=== PATIENT | female | born 1990 | race Caucasian/White ===

== ENCOUNTER 2017-07-20 21:08 | Emergency (ER) | payer OTHER ==
[2017-07-20] MEDS ORDERED: Meclizine HCl 25 MG TAB ONE (21:40)
--- NOTE | 2017-07-20 23:09 | CT ---
CT HEAD WITHOUT IV CONTRAST: 07/20/17 HISTORY: Patient fell on Satur, 07/15/17, and hit head. Dizziness all weak. COMPARISON: 10/04/12. There is no evidence of a hemorrhage, acute infarction, mass effect or midline shift. Ventricular sys tem is normal in size, shape and position. No calvarial fracture is seen. There has been no interval change from the prior exam. IMPRESSION: No acute intracranial abnormalities demonstrated. POS: [facility]
== END 2017-07-20 22:22 | disposition home or self-care (01) ==
LOC: SCSER 21:08
DX: S06.0X9A Concussion with loss of consciousness of unspecified duration, initial encounter (principal); E03.9 Hypothyroidism, unspecified; I10 Essential (primary) hypertension; Z79.899 Other long term (current) drug therapy; W19.XXXA Unspecified fall, initial encounter; Y92.69 Other specified industrial and construction area as the place of occurrence of the external cause
CPT/HCPCS: 70450

== ENCOUNTER 2019-06-13 15:04 | Day surgery (SDC) | payer BC ==
[2019-06-13 15:48] VITALS: BMI 34.3
[2019-06-13] MEDS ORDERED: hydrALAZINE 20 MG/ML VIAL SLOW IVP PRN (16:08)
--- NOTE | 2019-06-13 16:33 | PRG ---
DATE OF SERVICE: 06/13/2019 TIME OF SERVICE: 16:05. PRESENTING COMPLAINT: Vaginal bleeding at 24 weeks' gestation. HISTORY OF PRESENT ILLNESS: Ms. Miranda is a 29-year-old, 1, para 0, EDC 09/28, 24 weeks and 4 days. Antepartum record not available on the unit. She presents complaining of vaginal bleeding without antecedent activity this afternoon. no contractions. She reports an active fetus. She has had no further bleeding. 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 Denies complications of . PAST MEDICAL HISTORY: Significant for hypertension, obesity, and hypothyroidism. SURGICAL HISTORY: Positive for gastric sleeve in 2015. MEDICATIONS: Include labetalol 100 p.o. b.i.d., Synthroid 25 mcg p.o. daily, vitamins, and [id number] antacid. ALLERGIES: PENICILLIN, LATEX, AND BENADRYL. SOCIAL HISTORY: Denies tobacco, alcohol, or IV drug use. FAMILY HISTORY: Noncontributory. REVIEW OF SYSTEMS: Noncontributory. PHYSICAL EXAMINATION: VITAL SIGNS: White female, blood pressure 103/57, pulse 83, respirations 18, and temperature 98.0. HEENT: Within normal limits. LUNGS: Clear to auscultation bilaterally. HEART: Regular rhythm. ABDOMEN: Soft and nontender. FHTs 160s. No contractions noted. Positive accelerations, no decelerations noted. Sterile speculum exam was carried out. The patient was noted to have a cervix that was visually closed. The cervix had marked ectropion and was friable. Endocervical canal was well visualized, and no active bleeding or bloody mucus was noted in the canal. The patient had a small amount of bright red blood in the vagina. It was consistent with bleeding from the ectropion on her friable cervix. Digital exam revealed a cervix that was closed, long, and high. IMPRESSION: Twenty-four weeks' gestation with friable cervix secondary to ectropion. No evidence of infection or supracervical bleeding. PLAN: Reassurance. ER precautions. Discharge home. Keep scheduled followup with Dr. Infante. Job ID: [id number]
== END 2019-06-13 16:20 | disposition home or self-care (01) ==
LOC: L&D/OP 15:04
PROVIDERS: ATTEND Obstetrics & Gynecology
DX: O46.92 Antepartum hemorrhage, unspecified, second trimester (principal); O34.42 Maternal care for other abnormalities of cervix, second trimester; N86 Erosion and ectropion of cervix uteri; O10.912 Unspecified pre-existing hypertension complicating pregnancy, second trimester; O99.282 Endocrine, nutritional and metabolic diseases complicating pregnancy, second trimester; E03.9 Hypothyroidism, unspecified; O99.212 Obesity complicating pregnancy, second trimester; E66.9 Obesity, unspecified; Z3A.24 24 weeks gestation of pregnancy; Z79.899 Other long term (current) drug therapy; Z88.0 Allergy status to penicillin; Z88.8 Allergy status to other drugs, medicaments and biological substances; Z91.041 Radiographic dye allergy status

== ENCOUNTER 2019-08-30 11:35 | Inpatient (IN) | payer BC ==
[~2019-08-30 11:35] MED LIST: Lidocaine 2% MPF 10 ML AMP (For Epidural Use) ONE
[2019-08-30] MEDS ORDERED: Lidocaine 1% (PF) 30 ML VIAL SC PRN (12:05)
[2019-08-30] MEDS ORDERED: Ondansetron PF 4 MG/2 ML Vial IVP PRN ×2 (12:05→18:03)
[2019-08-30] MEDS ORDERED: Butorphanol Tartrate 1 MG/ML VIAL SLOW IVP PRN (12:05)
[2019-08-30] MEDS ORDERED: Ibuprofen 800 MG TAB PO PRN (12:05)
[2019-08-30] MEDS ORDERED: HYDROcodone/Acetaminophen 5/325 mg Tablet PO PRN ×3 (12:05→18:03)
[2019-08-30] MEDS ORDERED: hydrALAZINE 20 MG/ML VIAL SLOW IVP PRN ×2 (12:05→18:03)
[2019-08-30] MEDS ORDERED: CEFAZOLIN 2 GM in Premix Bag 1 BAG IVPB SCH (12:15)
[2019-08-30] MEDS ORDERED: Lactated Ringer's 1,000 ML IV SCH ×2 (12:15)
[2019-08-30 12:19] VITALS: BMI 34.8
[2019-08-30] MEDS ORDERED: Fentanyl 4 mcg/Bup 0.1% Cadd 100 ML ONE (12:24)
[2019-08-30 12:36] LABS: Hemoglobin 9.1 g/dL (12.0-16.0); Mean Corpuscular Volume 72.9 fL (78.0-98.0); Mean Platelet Volume 9.8 fL (7.4-10.4); Platelet Count 341 thou/uL (130-400); RBC Distribution Width 14.4 % (11.5-14.5); Red Blood Cell (RBC) Count 3.77 mill/uL (4.20-5.40); White Blood Cell (WBC) Count 24.2 thou/uL (4.8-10.8)
[2019-08-30 13:01] LABS: HBSAg Index 0.32 S/CO (0-0.99); Hep B Surf Ag Non-Reactive S/CO (NonReactive); Syphilis Antibody Nonreactive (Nonreactive); Syphilis Antibody Index 0.06 S/CO (<1.00 Non-Reactive)
[2019-08-30] MEDS ORDERED: Lidocaine 1.5%/Epinephrine 1:200,000 5 ML AMPUL IJ ONE (13:15)
[2019-08-30] MEDS: NS / Oxytocin 40 units/1000ml 1,000 ML IV PRN ×2 (16:18→17:19)
[2019-08-30] MEDS ORDERED: Adacel (T-DAP) 0.5 ML SYRINGE IM ONE (18:03)
[2019-08-30] MEDS ORDERED: Misoprostol 200 MCG TAB VAG PRN (18:03)
[2019-08-30] MEDS ORDERED: Bisacodyl 10 MG SUPP PR PRN (18:03)
[2019-08-30] MEDS ORDERED: Promethazine HCl 25 MG/ML VIAL IM PRN (18:03)
[2019-08-30] MEDS ORDERED: Milk Of Magnesia 30 ML UDCUP PO PRN (18:03)
[2019-08-30] MEDS ORDERED: NS / Oxytocin 40 units/1000ml 1,000 ML IV SCH (18:03)
[2019-08-30] MEDS ORDERED: Measles/Mumps/Rubella 10 MCG/0.5 ML VIAL SC ONE (18:03)
[2019-08-30] MEDS ORDERED: Methylergonovine 0.2 MG/ML VIAL IM PRN (18:03)
[2019-08-30] MEDS ORDERED: Benzocaine-Menthol 82.5 ML CAN TOP PRN (18:03)
[2019-08-30] MEDS ORDERED: Zolpidem Tartrate 5 MG TAB PO PRN (18:03)
[2019-08-30] MEDS ORDERED: Preparation H Ointment 28 GM TUBE PR PRN (18:03)
[2019-08-30] MEDS ORDERED: Lanolin Ointment 7 GM TUBE TOP PRN (18:03)
[2019-08-30] MEDS ORDERED: Varicella virus, LIVE 0.5 ML VIAL SC ONE (18:03)
[2019-08-30] MEDS ORDERED: CEFAZOLIN 1 GM in Sodium Chloride 0.9% 100 ML IVPB SCH (20:00)
[2019-08-30] MEDS: Ibuprofen 800 MG TAB PO SCH (22:10)
[2019-08-30] MEDS: Docusate Calcium (SURFAK) 240 MG CAP PO SCH (22:11)
[2019-08-31 06:24] LABS: Hemoglobin 7.1 g/dL (12.0-16.0); Mean Corpuscular HGB CONC 33.2 g/dL (32.0-36.0); Mean Corpuscular Hemoglobin 24.5 pg (27.0-31.0); Mean Corpuscular Volume 73.7 fL (78.0-98.0); Mean Platelet Volume 9.1 fL (7.4-10.4); Platelet Count 256 thou/uL (130-400); RBC Distribution Width 14.3 % (11.5-14.5); Red Blood Cell (RBC) Count 2.88 mill/uL (4.20-5.40); White Blood Cell (WBC) Count 17.3 thou/uL (4.8-10.8)
[2019-08-31] MEDS: Ibuprofen 800 MG TAB PO SCH ×3 (06:38→22:57)
[2019-08-31] MEDS ORDERED: Witch Hazel-Glycerin 1 EACH JAR TOP PRN (08:38)
[2019-08-31] MEDS: Ferrous Sulfate 325 MG TAB PO SCH ×2 (08:46→17:24)
[2019-08-31] MEDS: Docusate Calcium (SURFAK) 240 MG CAP PO SCH ×2 (08:46→22:57)
[2019-08-31] MEDS: Prenatal Vitamin 1 TAB PO SCH (08:46)
[2019-09-01] MEDS: Ibuprofen 800 MG TAB PO SCH (05:20)
[2019-09-01] MEDS: Prenatal Vitamin 1 TAB PO SCH (09:06)
[2019-09-01] MEDS: Docusate Calcium (SURFAK) 240 MG CAP PO SCH (09:06)
[2019-09-01] MEDS: Ferrous Sulfate 325 MG TAB PO SCH (09:06)
[2019-09-01 09:18] VITALS: BP 117/83; TEMP 98.1
--- NOTE | 2019-09-01 10:18 | PDOC.PP ---
Post Progress Note Post Day #: 1 PO intake tolerated: yes Flatus: yes Ambulation: yes Vital Signs (12 hours) Temp Pulse Resp BP Pulse Ox 09/01/19 08:44 98.1 F 68 12 117/83 97 Weight Weight 236 lb Result Diagrams: 08/31/19 06:13 Additional Labs: Post Labs Blood Type A POSITIVE 08/30/19 11:56 Hep Bs Antigen Non-Reactive S/CO (NonReactive) 08/30/19 11:56 - Assessment/Plan Given COVID-19 guidelines - this visit was conducted over the phone, with all labs reviewed electronically. The patient states that she is comfortable, resting well, with minimal lochia at this time. She is tolerating a regular diet and breast feeding. 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 Vital signs are stable, and I do not see a strong reason for blood transfusion at this time. IV Iron was given last week. Will plan to DC to home tomorrow.
--- NOTE | 2019-09-01 10:20 | PDOC.PP ---
Post Progress Note Post Day #: 1 PO intake tolerated: yes Flatus: yes Ambulation: yes (Given COVID-19 guidelines - this visit was conducted over the phone, with all labs reviewed electronically. The patient states that she is comfortable, resting well, with minimal lochia at this time. She is tolerating a regular diet and breast feeding. 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 Vital signs are stable, and I do not see a strong reason for blood transfusion at this time. IV Iron was given last week. Will plan to DC to home tomorrow.) Vital Signs (12 hours) Temp Pulse Resp BP Pulse Ox 09/01/19 08:44 98.1 F 68 12 117/83 97 Weight Weight 236 lb Result Diagrams: 08/31/19 06:13 Additional Labs: Post Labs Blood Type A POSITIVE 08/30/19 11:56 Hep Bs Antigen Non-Reactive S/CO (NonReactive) 08/30/19 11:56
== END 2019-09-01 13:40 | disposition home or self-care (01) | DRG 807 ==
LOC: L&D/OP 11:35 → L&D 12:11 → 3SW 19:21
PROVIDERS: ADMIT Obstetrics & Gynecology; ATTEND Obstetrics & Gynecology
PROC: 10E0XZZ Delivery of Products of Conception, External Approach (ICD-10-PCS; principal; 2019-08-30)
DX: O60.14X0 Preterm labor third trimester with preterm delivery third trimester, not applicable or unspecified (principal); Z37.0 Single live birth; Z3A.35 35 weeks gestation of pregnancy; O99.02 Anemia complicating childbirth; D64.9 Anemia, unspecified; Z88.0 Allergy status to penicillin; Z91.040 Latex allergy status
CPT/HCPCS: 36415; 51702; 59025; 76815; 76819; 85027; 86780; 86850; 86900; 86901; 87340; 87480; 87510; 87660; 96365; 96366; 96372; 99285; G0378; J0690; J0702; J2001; J2916; J3490; J7050

== ENCOUNTER 2024-02-28 16:18 | Emergency (ER) | payer BC ==
[~2024-02-28 16:18] MED LIST changes: +GASTROGRAFIN 30 ML BOT ONE; -Lidocaine 2% MPF 10 ML AMP (For Epidural Use) ONE
== END 2024-02-28 18:04 | disposition left against medical advice (07) ==
LOC: ERS 16:18
DX: Z53.21 Procedure and treatment not carried out due to patient leaving prior to being seen by health care provider (principal)
CPT/HCPCS: Q9963